=== PATIENT | female | born 1990 | race Caucasian/White ===

== ENCOUNTER 2017-05-21 08:33 | Emergency (ER) | payer OTHER ==
[2017-05-21 08:44] VITALS: BMI 30.9
[2017-05-21] MEDS ORDERED: Tdap Vaccine 0.5 ml Vial (10-64 yrs) IM ONE ×2 (09:08→09:20)
[2017-05-21] MEDS ORDERED: Bacitracin Ointment 30 GM TUBE TOP STA (09:15)
[2017-05-21] MEDS ORDERED: Bacitracin 500 Units/gm Oint Foilpak UD ONE (09:16)
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
[2017-05-21 10:22] VITALS: PULSE 109; RESP 16; TEMP 97.8; O2SAT 98
[2017-05-21 10:23] VITALS: BP 125/80
== END 2017-05-21 10:00 | disposition home or self-care (01) ==
LOC: C.ER 08:33
DX: S01.81XA Laceration without foreign body of other part of head, initial encounter (principal); S61.501A Unspecified open wound of right wrist, initial encounter; Y04.0XXA Assault by unarmed brawl or fight, initial encounter; Z23 Encounter for immunization

== ENCOUNTER 2017-09-17 09:42 | Emergency (ER) | payer BC, MEDICAID ==
[2017-09-17 10:09] VITALS: BP 120/78; PULSE 97; RESP 18; TEMP 98.1; O2SAT 98; BMI 33.6
--- NOTE | 2017-09-17 10:34 | C.PDOC ---
History Of Present Illness 27 year old female with no medical problems who is 18-weeks presents to the emergency department with complaints of vaginal pain for the last three days. Patient reports that she engaged in intercourse three days ago, and has experienced the pain since then. Patient denies vaginal discharge, fever, or chills. Time Seen by Provider: 09/17/17 09:49 Chief Complaint (Nursing): Female Genitourinary History Per: Patient History/Exam Limitations: no limitations Onset/Duration Of Symptoms: Days (3) Current Symptoms Are (Timing): Still Present Associated Symptoms: Other (vaginal pain, denies vaginal discharge). denies: Fever, Chills Past Medical History Reviewed: Historical Data, Nursing Documentation, Vital Signs Vital Signs: Last Vital Signs Temp 98.1 F 09/17/17 09:51 Pulse 97 H 09/17/17 09:51 Resp 18 09/17/17 10:45 BP 120/78 09/17/17 09:51 Pulse Ox 98 09/17/17 10:34 - Medical History PMH: Asthma Surgical History: No Surg Hx Family History: States: No Known Family Hx - Social History Hx Tobacco Use: No Hx Alcohol Use: Yes Hx Substance Use: Yes - Immunization History Hx Tetanus Toxoid Vaccination: Yes Hx Influenza Vaccination: No Hx Pneumococcal Vaccination: No Review Of Systems Except As Marked, All Systems Reviewed And Found Negative. Constitutional: Negative for: Fever, Chills Genitourinary: Positive for: Other (vaginal pain). Negative for: Vaginal Discharge Physical Exam - Physical Exam Appears: Non-toxic, No Acute Distress Skin: Warm, Dry Head: Atraumatic, Normacephalic Eye(s): bilateral: Normal Inspection Nose: Normal Neck: Normal, Supple Chest: Symmetrical Cardiovascular: Rhythm Regular, No Murmur Respiratory: Normal Breath Sounds, No Rales, No Rhonchi, No Wheezing Gastrointestinal/Abdominal: Normal Exam, Soft, No Tenderness Pelvic: Normal External Exam, No Vaginal Bleeding, No Vaginal Discharge, Other ( 6 o'clock blanca has small, white, tender papilla. Not draining or swollen.) Neurological/Psych: Oriented x3, Normal Speech, Normal Cognition ED Course And Treatment O2 Sat by Pulse Oximetry: 98 (RA) Pulse Ox Interpretation: Normal Disposition Counseled Patient/Family Regarding: Diagnosis, Need For Followup - Disposition Disposition: HOME/ ROUTINE Disposition Time: 10:32 Condition: STABLE Additional Instructions: Use warm compresses and sitz bath with Epson salts to relieve the pain and swelling Instructions: How to Do a Sitz Bath, Acne (ED) Forms: [facility] (Romansh), Work Excuse - POA Present On Arrival: None - Clinical Impression Clinical Impression: Vaginal pain, Pimples - Scribe Statement The provider has reviewed the documentation as recorded by the Scribe (Donavan Lee) Provider Attestation: All medical record entries made by the Scribe were at my direction and personally dictated by me. I have reviewed the chart and agree that the record accurately reflects my personal performance of the history, physical exam, medical decision making, and the department course for this patient. I have also personally directed, reviewed, and agree with the discharge instructions and disposition.
== END 2017-09-17 10:48 | disposition home or self-care (01) ==
LOC: C.ER 09:42
DX: R10.2 Pelvic and perineal pain (principal); R23.8 Other skin changes

== ENCOUNTER 2017-12-23 16:30 | Emergency (ER) | payer MEDICAID ==
[2017-11-30 18:35] VITALS: BMI 29.2
[2017-12-23 17:16] LABS: SQUAMOUS EPITHIAL 33 /hpf (0-5); URINE BACTERIA MANY (<OCC); URINE BILIRUBIN NEGATIVE (NEGATIVE); URINE BLOOD 3+ (NEGATIVE); URINE CLARITY Hazy (Clear); URINE COLOR Yellow (YELLOW); URINE GLUCOSE (UA) NORMAL (Normal); URINE LEUKOCYTE ESTERASE 2+ Leu/uL (Negative); URINE PROTEIN 1+ mg/dL (NEGATIVE); URINE UROBILINOGEN NORMAL mg/dL (0.2-1.0)
[2017-12-23 17:31] LABS: BASO # 0.1 K/uL (0.0-0.2); BASO % 0.5 % (0.0-2.0); EOS # 0.1 K/uL (0.0-0.7); EOS % 0.8 % (0.0-4.0); HEMOGLOBIN 12.1 g/dL (11.0-16.0); LYMPH # 1.9 K/uL (1.0-4.3); LYMPH % 18.6 % (20.0-40.0); MEAN CELL VOLUME 93.6 fL (81.0-99.0); MEAN CORPUSCULAR HEMOGLOBIN 32.8 pg (27.0-31.0); MEAN PLATELET VOLUME 9.7 fL (7.2-11.7); MONO # 0.8 K/uL (0.0-0.8); MONO % 8.1 % (0.0-10.0); NEUT # 7.3 K/uL (1.8-7.0); RBC 3.69 Mil/uL (3.80-5.20); RED CELL DISTRIBUTION WIDTH 12.6 % (11.5-14.5); WHITE BLOOD COUNT 10.2 K/uL (4.8-10.8)
[2017-12-23 17:43] LABS: BLOOD UREA NITROGEN 7 mg/dL (7-17); CALCIUM 8.7 mg/dl (8.6-10.4); GFR NON-AFRICAN AMERICAN > 60
[2017-12-23 17:58] LABS: PROTHROMBIN TIME 11.4 SECONDS (9.7-12.2)
--- NOTE | 2017-12-23 18:03 | OBHP ---
Datetime: 12/23/2017 17:58 IP Adm Impression: , intrauterine IP Admit Plan: Observation/Evaluation Extremities - PN: Normal Abdomen - PN: Normal General - PN: Normal Presentation-Admit: Vertex FHR - Baseline A Provider: 140 Contraction Comments Provider: None Comments, ACOG Physical Exam: SSE: No bleeding, No LOF. Not produced with caugh VE: Closed/50/-3 TOCO: No CTX EFM: Cat 1 Gestation - Est Wks by US: 30.3 EGA AdmitDate IP: 30.3 Vital Signs Provider: Reviewed; Within Normal Limits IP Chief Complaint: Vaginal bleeding NICHD Accel Fetus A IP Provider: 15X15 NICHD Decel Fetus A IP Provider: None Dilatation, Provider: 0 Effacement, Provider: 50 Station, Provider: -3 Genitourinary Exam: Normal
[2017-12-24 00:54] VITALS: BP 118/70; PULSE 89; RESP 20; TEMP 98
--- NOTE | 2017-12-24 11:12 | US ---
Indication: Vaginal bleeding Comparison: None available. Technique: Real-time ultrasound was performed through the pelvis. Findings: There is a single living fetus in cephalic presentation. Amniotic fluid volume is within normal limits. Posterior fundal placenta. The placenta is not previa. There are no adnexal masses or cysts evident. The study was performed for the emergent evaluation of vaginal bleeding, and the whole anatomic survey of the fetus was not performed. Limited visualized anatomy including head, stomach, bladder, kidneys, and diaphragm appear grossly unremarkable. This should be performed on an outpatient elective basis as clinically warranted. Measurements and calculations: Fetus has a composite sonographic age of 30 weeks 2 days. This calculation is based on the biparietal diameter, head circumference, abdominal circumference, and femur length. Estimated heart rate 142.5 beats per min. Estimated weight 1549 g. Amniotic fluid index 19.1 cm, within normal limits. Biophysical profile: movements 2/2 breathing 2/2 tone 2/2 Amniotic fluid 2/2 Total score impression: 10/18 Impression: Single living fetus with a composite sonographic age of 30 weeks 2 days. Estimated heart rate 142.5 beats per min. Biophysical profile of 8 out of 8. Preliminary impression was provided by [facility].
== END 2017-12-23 20:25 | disposition left against medical advice (07) ==
LOC: C.EROB 16:30
DX: O46.93 Antepartum hemorrhage, unspecified, third trimester (principal); Z3A.30 30 weeks gestation of pregnancy

== ENCOUNTER 2018-02-27 23:10 | Inpatient (IN) | payer BC, MEDICAID ==
[2018-02-28 00:17] VITALS: BMI 36.0
[2018-02-28] MEDS ORDERED: Lactated Ringer's 1,000 ML IV ONE (00:18)
[2018-02-28] MEDS ORDERED: Nalbuphine 20 mg/ml Inj (1 ml) IVP PRN (00:30)
--- NOTE | 2018-02-28 00:39 | OBHP ---
Datetime: 02/28/2018 00:27 IP Adm Impression: Term, intrauterine ; No Active Labor IP Admit Plan: Observation/Evaluation Admit Comment, IP Provider: 28 yo at 39.6 wks with c/o ctx started yesterday. CTX got stronger today. She has no c/o VB or LOF. Pt received PNC in [place]. Gives a h/o GDMA 1. As per the pt moved to the area 2 wks ago and her last visit was last , She was told that she needs anitbiotics in labor for GBS . PMH: denies PSH: Denies POBH: Termination x 3 PGYNH: No h/o STD's as per the pt ALL: NKDA labs- Not available. Will obtain records form clinic VE: /-3 TOCOC: Irr ctx EFM: 130 cat A/P : 28 y/o at 39.6 wks GDMA 1 R/O Labor Admit to L_D for observation IV Pain management No PNC labs Obtain records from the clinic Will re-evaluate Extremities - PN: Normal Abdomen - PN: Normal HEENT - PN: Normal General - PN: Normal FHR - Baseline A Provider: 130 Membranes, Provider: Intact Contraction Comments Provider: Irregular Gestation - Est Wks by US: 39.6 EGA AdmitDate IP: 40.0 Vital Signs Provider: Reviewed; Within Normal Limits IP Chief Complaint: Uterine contractions NICHD Variability Prov Fetus A: Moderate 6-25bpm NICHD Accel Fetus A IP Provider: 15X15 NICHD Decel Fetus A IP Provider: None Dilatation, Provider: 1 Effacement, Provider: 80 Station, Provider: -3 DTRs - PN: Normal Datetime: 12/23/2017 17:58 FHR Category Provider Fetus A: Category I
[2018-02-28] MEDS ORDERED: Nalbuphine HCL 10 mg/ml Ampule ONE (00:41)
[2018-02-28 00:58] LABS: BASO # 0.1 K/uL (0.0-0.2); BASO % 0.6 % (0.0-2.0); EOS # 0.1 K/uL (0.0-0.7); EOS % 0.5 % (0.0-4.0); HEMOGLOBIN 12.4 g/dL (11.0-16.0); LYMPH % 18.1 % (20.0-40.0); MEAN CELL VOLUME 95.9 fL (81.0-99.0); MEAN CORPUSCULAR HEMOGLOBIN 32.9 pg (27.0-31.0); MEAN CORPUSCULAR HGB CONC 34.3 g/dL (33.0-37.0); MEAN PLATELET VOLUME 10.7 fL (7.2-11.7); MONO # 1.1 K/uL (0.0-0.8); MONO % 9.7 % (0.0-10.0); NEUT # 7.7 K/uL (1.8-7.0); NEUT % 71.1 % (50.0-75.0); RBC 3.77 Mil/uL (3.80-5.20); RED CELL DISTRIBUTION WIDTH 12.5 % (11.5-14.5); WHITE BLOOD COUNT 10.9 K/uL (4.8-10.8)
[2018-02-28 01:18] LABS: ALB/GLOB RATIO 1.1 (1.0-2.1); ALT/SGPT 20 U/L (9-52); AST/SGOT 16 U/L (14-36); BLOOD UREA NITROGEN 7 mg/dL (7-17); CALCIUM 8.3 mg/dl (8.6-10.4); GFR NON-AFRICAN AMERICAN > 60
[2018-02-28 01:19] LABS: BARBITURATES, UR NEGATIVE (NEGATIVE); BENZODIAZEPINES, UR NEGATIVE (NEGATIVE); OPIATES, UR NEGATIVE (NEGATIVE); PHENCYCLIDINE, UR NEGATIVE (NEGATIVE)
[2018-02-28 01:43] LABS: HEPATITIS B SURFACE AG Negative (NEGATIVE)
[2018-02-28 01:49] LABS: HEPATITIS A IGM NEGATIVE (NEGATIVE); HEPATITIS B CORE AB NEGATIVE (NEGATIVE)
[2018-02-28 02:00] LABS: HEPATITIS C ANTIBODY NEGATIVE (NEGATIVE)
[2018-02-28] MEDS ORDERED: Penicillin G 5 Million Unit Vial IVPB ONE (02:40)
[2018-02-28] MEDS ORDERED: Penicillin G Potassium 5 MU in Dextrose 5% In Water 50 ML IV ONE (02:50)
[2018-02-28] MEDS ORDERED: Fentanyl/Bupivacaine HCl 250 ML EPI ONE (03:02)
[2018-02-28] MEDS ORDERED: Oxytocin 20 units in LR 2,000 ML IV ONE (05:47)
[2018-02-28] MEDS ORDERED: Penicillin G Potassium 2.5 MU in Dextrose 5% In Water 50 ML IV SCH (06:45)
--- NOTE | 2018-02-28 06:45 | OBADHP ---
Datetime: 02/28/2018 00:27 Admit Comment, IP Provider: 28 yo at 39.6 wks with c/o ctx started yesterday. CTX got stronger today. She has no c/o VB or LOF. Pt received PNC in [place]. Gives a h/o GDMA 1. As per the pt moved to the area 2 wks ago and her last visit was last , She was told that she needs anitbiotics in labor for GBS . PMH: denies PSH: Denies POBH: Termination x 3 PGYNH: No h/o STD's as per the pt ALL: NKDA labs- Not available. Will obtain records form clinic VE: //-2 TOCOC: Irr ctx EFM: 130 cat A/P : 28 y/o at 39.6 wks GDMA 1 R/O Labor Admit to L_D GBS prophylaxis Epidural Extremities - PN: Normal Abdomen - PN: Normal HEENT - PN: Normal General - PN: Normal FHR - Baseline A Provider: 130 Membranes, Provider: Intact Contraction Comments Provider: Irregular Gestation - Est Wks by US: 39.6 Vital Signs Provider: Reviewed; Within Normal Limits IP Chief Complaint: Uterine contractions NICHD Variability Prov Fetus A: Moderate 6-25bpm NICHD Accel Fetus A IP Provider: [id number] NICHD Decel Fetus A IP Provider: None Dilatation, Provider: 4 Effacement, Provider: 90 Station, Provider: -2 DTRs - PN: Normal EGA AdmitDate IP: 40.0 IP Adm Impression: Term, intrauterine ; Active labor IP Admit Plan: Admit to unit; Initiate labor protocol Datetime: 12/23/2017 17:58 Presentation-Admit: Vertex Comments, ACOG Physical Exam: SSE: No bleeding, No LOF. Not produced with caugh VE: Closed/50/-3 TOCO: No CTX EFM: Cat 1 FHR Category Provider Fetus A: Category I Genitourinary Exam: Normal
[2018-02-28] MEDS ORDERED: Bupivacaine HCl 0.5% PF (30 ml) Inj ONE (08:27)
[2018-02-28] MEDS ORDERED: Oxytocin 30 UNIT 30 UNITS/500 ML BAG IV ONE (10:00)
[2018-02-28] MEDS ORDERED: Oxycodone/Acetaminophen 5/325 mg Tab PO PRN (10:40)
[2018-02-28] MEDS ORDERED: Benzocaine/Menthol 20%-0.5% Topical Spray (60 ml) TOP PRN (10:40)
--- NOTE | 2018-02-28 11:23 | OBDS ---
DELIVERY PERSONNEL Delivery Doctor: Agustin Ron DO Associate Professor Of Church Music: Santosh Castañeda RN Anesthesiologist: Ruby Hernández MD MATERNAL INFORMATION Delivery Anesthesia: Epidural Maternal Complications: None Provider Comments: of a viable female from R OA position and over an intact perineum. Apgars 9_9, BW 6# 5oz. Dr Coats in attendance secondary to thick Meconium Cord blood and cord pH obtained and send to Lab Placenta Meconium stained, manually removed and sent to Pathology Sponge and instrument counts correct No tears or lacerations EBL 200 mls Pt and both tolerated procedure well and remained in LDR room in Stable and Satisfactory c ondition. LABOR SUMMARY EDC: 02/28/2018 00:00 No. Babies in Womb: 1 Attempted: No Labor Anesthesia: Epidural LABOR INFORMATION Reason for Induction: Not Applicable Onset of Labor: 02/28/2018 04:28 Complete Dilatation: 02/28/2018 09:28 Oxytocin: N/A Group B Beta Strep: Positive Antibiotics # of Doses: 3 Antibiotics Time of Last Dose: 957 Steroids Given: None Reason Steroids Not Administered: Not Applicable MEMBRANES Membranes Rupture Method: Artificial Rupture of Membranes: 02/28/2018 08:44 Length of Rupture (hrs): 1.50 Amniotic Fluid Color: Light Meconium Amniotic Fluid Amount: Moderate Amniotic Fluid Odor: Normal STAGES OF LABOR Stage 1 hrs: 5 Stage 1 min: 0 Stage 2 hrs: 0 Stage 2 min: 46 Stage 3 hrs: 0 Stage 3 min: 14 Total Time in Labor hrs: 6 Total Time in Labor min: 0 VAGINAL DELIVERY Episiotomy: None Laceration Extension: N/A Laceration Type: None Initial Vag Sponge Count: 10 Final Vag Sponge Count: 10 Sponge Count Correct: Yes BABY A INFORMATION Infant Delivery Date/Time: 02/28/2018 10:14 Method of Delivery: Vaginal Born in Route : No : N/A Forceps: N/A Vacuum Extraction: N/A Shoulder Dystocia : Yes SHOULDER DYSTOCIA BABY A Infant Delivery Date/Time: 02/28/2018 10:14 PRESENTATION/POSITION BABY A Presentation: Cephalic Cephalic Presentation: Vertex Breech Presentation: N/A PLACENTA INFORMATION BABY A Placenta Delivery Time : 02/28/2018 10:28 Placenta Method of Delivery: Manual Removal Placenta Status: Delivered SCORES BABY A Heart Rate 1 min: >100 bpm Resp Effort 1 min: Good Cry Reflex Irritability 1 min: Cough or Sneeze or Pulls Away Muscle Tone 1 min: Active Motion Color 1 min: Body Bart[place], Extremities Blue Resuscitation Effort 1 min: Tactile Stimulation SCORE 1 MIN: 9 Heart Rate 5 min: >100 bpm Resp Effort 5 min: Good Cry Reflex Irritability 5 min: Cough or Sneeze or Pulls Away Muscle Tone 5 min: Active Motion Color 5 min: Body [place], Extremities Blue SCORE 5 MIN: 9 INFANT INFORMATION BABY A Gestational Age at Delivery: 40.0 Gestational Status: Term Infant Outcome : Liveborn Infant Condition : Stable Infant Sex: Female IDENTIFICATION/MEDS BABY A ID Band Number: [id number] ID Band Location: Left Leg; Left Arm Sensor Applied: Yes Sensor Number: [id number] Sensor Location : Cord Clamp WEIGHT/LENGTH BABY A Birthweight (gms): 2860 Infant Weight (lb): 6 Infant Weight (oz): 5 Length Inches: 18.50 Length cms: 47.0 CORD INFORMATION BABY A No. Cord Vessels: 3 Nuchal Cord : N/A Cord Blood Taken: Yes Suction: Mouth; Nose ASSESSMENT BABY A Infant Complications: None Physical Findings at Delivery: Within Normal Limits Infant Respirations: Appears Normal Water Main Installer Helper/ALS Called : No Care By: dr coats Transferred To: Remains with Mother
[2018-03-01 07:50] LABS: BASO % 0.4 % (0.0-2.0); EOS % 0.5 % (0.0-4.0); HEMOGLOBIN 11.9 g/dL (11.0-16.0); LYMPH # 2.1 K/uL (1.0-4.3); MEAN CELL VOLUME 96.7 fL (81.0-99.0); MEAN CORPUSCULAR HEMOGLOBIN 33.5 pg (27.0-31.0); MEAN CORPUSCULAR HGB CONC 34.6 g/dL (33.0-37.0); MEAN PLATELET VOLUME 10.1 fL (7.2-11.7); MONO # 0.8 K/uL (0.0-0.8); MONO % 7.9 % (0.0-10.0); NEUT # 7.4 K/uL (1.8-7.0); NEUT % 71.2 % (50.0-75.0); RBC 3.57 Mil/uL (3.80-5.20); RED CELL DISTRIBUTION WIDTH 12.5 % (11.5-14.5); WHITE BLOOD COUNT 10.4 K/uL (4.8-10.8)
[2018-03-01 17:28] VITALS: RESP 18
--- NOTE | 2018-03-01 17:29 | OBPPN ---
Datetime: 03/01/2018 15:17 PP Pain Prov: Within normal limits PP Nausea Prov: Denies PP Flatus Prov: No PP Breasts Prov: Not Done PP Heart Prov: Normal PP Lungs Prov: Normal PP Abdomen/Uterus Prov: Normal PP Lochia Prov: Normal PP Vulva/Perineum Prov: Normal PP CVA Tenderness Prov: Normal PP Extremities Prov: Normal PP C/S Incision Prov: Not Applicable PP Progress Prov: Not Applicable PP Comments Phys Exam Prov: Fundus firm and non-tender. Below Umbilicus PP Impression Prov: Normal progression PP Plan Prov: Continue present management PP Progress Note Prov: Pt seen and examined PPD #2 S/P PP H_H 11.9/34.5, B+ + Cannabinoids in Mother and baby's urine SS and DFYS aware and interviened PT in Stable and Satisfactory condition and recovey Anticipate discharge home IP PP Procedures: None Vital Signs Provider PP: Reviewed
[2018-03-02 00:18] VITALS: O2SAT 98
[2018-03-02] MEDS ORDERED: Influenza Vaccine 60 MCG/0.5 ML SYR (3 yr & up) IM ONE (10:59)
--- NOTE | 2018-03-02 18:16 | OBPPN ---
Datetime: 03/02/2018 18:08 PP Pain Prov: Within normal limits PP Nausea Prov: Denies PP Flatus Prov: Yes PP BM Prov: Yes PP Breasts Prov: Normal PP Heart Prov: Normal PP Lungs Prov: Normal PP Abdomen/Uterus Prov: Normal PP Lochia Prov: Normal PP Vulva/Perineum Prov: Normal PP CVA Tenderness Prov: Normal PP Extremities Prov: Normal PP C/S Incision Prov: Not Applicable PP Progress Prov: Normal PP Comments Phys Exam Prov: Abdomen: soft, Nondistended. Fundus firm, mobile, non tender, 2 FB below umbilicus. Mild lochia Extremities: no calf tenderness or edema All other systems reviewed and are negative PP Impression Prov: Normal progression PP Plan Prov: Discharge PP Progress Note Prov: Patient was seen at approximately 0935 hours. Received in room 454 in good sp irits. Bottlefeeding; desires to breastfeed. Denies headaches, nausea vomiting. Ambulating and voidi ng without difficulty. P.E.: as above. WD in NAD. awake, alert, oriented to time, perosn and place. Pleasant and cooerati ve - PPD#1 H/H 11.9/34.5 Rh(+) Assessment: PPD#2, 28 y.o. P1031. Afebrile, vital signs stable. (+) cannibinoid on UDS on admissio n; also positive. Patient has been cleared by DYFS - is going home with her, as per no te by Rest Room Attendant. Patient interested in IUD for contraception. Patient is cllinically stable. Plan: 1) Discharge home 2) See full discharge instrucitons Vital Signs Provider PP: Reviewed; Within Normal Limits
--- NOTE | 2018-03-02 18:16 | OBDCSUM ---
Datetime: 03/02/2018 13:59 Discharged to, Provider: Home Follow up at, Provider: [facility] Disch Instr Activity: Normal activity Disch Instr Diet: Regular Discharge Diet restrict Prov: none Discharge Instructions, Provider: Routine instructions given Discharge Diagnosis, Provider: Term Delivered Discharge Time: 03/02/2018 14:02 Follow up in weeks, Provider: April 11, 2018 Disch Referrals: Woodworking Machine Feeder Contraception discussed, Prov: Yes Disch Activity Restrictions: No exercising; No lifting; No driving; Minimize walking; Minimize stair -climbing; No sexual activity; Nothing in vagina - [place], tampons, douche Discharge Diagnosis Prov Other: Cannibinoid positive Contraception counseling Contraception after Delivery: IUD Datetime: 12/23/2017 20:16 Discharged to, Provider: Home Discharge Instructions, Provider: Routine instructions given Discharge Diagnosis, Provider: Term Delivered Contraception discussed, Prov: Yes Discharge Comment, Provider: Ms. Richard was seen and examined at bedside this AM. She reports feeling well and states she is ready to go home. She has been tolerating regular diet without nausea/vomitin g and has had two BM's since delivery. She is currently bottle-feeding but has been trying to learn h ow to breast-feed. She denies additional vaginal bleeding Contraception after Delivery: IUD
[2018-03-02 20:51] VITALS: BP 96/60; PULSE 95; TEMP 98
== END 2018-03-02 14:30 | disposition home or self-care (01) | DRG 372 ==
LOC: C.EROB 23:10 → C.4D 02-28 01:04 → OBSVTOIN 02-28 02:14 → C.4M 02-28 12:00
PROVIDERS: ADMIT Obstetrics & Gynecology; ATTEND Obstetrics & Gynecology
PROC: 10E0XZZ Delivery of Products of Conception, External Approach (ICD-10-PCS; principal; 2018-02-28)
PROC: 10907ZC Drainage of Amniotic Fluid, Therapeutic from Products of Conception, Via Natural or Artificial Opening (ICD-10-PCS; 2018-02-28)
DX: O24.420 Gestational diabetes mellitus in childbirth, diet controlled (principal); O99.324 Drug use complicating childbirth; O77.0 Labor and delivery complicated by meconium in amniotic fluid; O66.0 Obstructed labor due to shoulder dystocia; O99.820 Streptococcus B carrier state complicating pregnancy; F12.90 Cannabis use, unspecified, uncomplicated; Z30.09 Encounter for other general counseling and advice on contraception; Z3A.39 39 weeks gestation of pregnancy; Z37.0 Single live birth